=== PATIENT | male | born 1980 | race Caucasian/White ===

== ENCOUNTER 2016-12-07 09:01 | Emergency (ER) | payer SELFPAY ==
[~2016-12-07] VITALS: Ht 175.3 cm; Wt 87.0 kg
[2016-12-07 09:01] VITALS: TEMP 98.2; Ht 175.3 cm; Wt 87.0 kg
[~2016-12-07 09:01] MED LIST: ONDA4TAB7 PO
--- OUTSIDE RECORDS SUMMARY | 2016-12-07 09:05 | XMS REPORT | Continuity of Care Document ---
Author Author [facility] Organization [facility] Address Unknown Phone Unavailable Support Name Relationship Address Phone TYRONE MCQUEEN MD Caregiver [address] [place] [address] [place] [address] Unavailable RORO LOZADA Next Of Kin [address] [place] [address] Insurance Providers Guarantor Roshni Cash Address [address] [place] [address] Email [email or web address] Payer Self Pay Subscriber's Name Roshni Cash Relationship 18 Self Chief Complaint and Reason for Visit Chief Complaint Head Injury Reason for Visit Concussion [id number] Problems Active Problems Medical Problem Onset Date Status Ankle injury Unknown Acute Arm Pain Unknown Acute Foot sprain Unknown Acute Patient left without being seen Unknown Acute Right ankle sprain Unknown Acute Sprain, ankle joint, medial Unknown Acute Toothache Unknown Acute Toothache Unknown Acute Past Problems Medical Problem Onset Date Acute bronchitis Unknown Concussion Unknown Cough with hemoptysis Unknown Dental decay Unknown Diarrhea Unknown Gingivitis Unknown Laceration of right thumb without complication Unknown Pain, dental Unknown Viral upper respiratory infection Unknown Medications Current Home Medications Medication Dose Units Route Directions Days Qty Instructions Start Date Ondansetron (Zofran Odt) 4 Mg Tab.rapdis 4 Mg Oral Q6h/0300,0900,1500,2100 as needed for Nausea &/Or Vomiting 10 Tablet Oral disintegrating tablet Past Home Medications Medication Directions Ordered Status Acetaminophen 500 Mg Tablet, 1000 Mg Oral Every 8 Hours as needed for Pain Discontinued Atomoxetine Hcl (Strattera) 18 Mg Capsule, 1 Cap Oral Every Morning 11/17/16 Discontinued Bupropion Hcl 100 Mg Tablet, 100 Mg Oral Twice A Day 11/17/16 Discontinued Dextroamphetamine/Amphetamine (Adderall 15 Mg Tablet) 15 Mg Tablet, 15 Mg Oral Twice A Day 11/17/16 Discontinued Ibuprofen 200 Mg Tablet, 2 Tab Oral Every 4 Hours as needed for Pain Discontinued Lisinopril 20 Mg Tablet, 20 Mg Oral Daily for Hypertension 11/17/16 Discontinued Social History Social History Problem Response Recorded Date/Time Onset Date Status Hx Substance Use No 11/17/2016 1:16pm Not Applicable Not Applicable Hx Alcohol Use Y OCC 11/17/2016 1:16pm Not Applicable Not Applicable Tobacco Usage smoke 04/26/2015 3:42am Not Applicable Not Applicable Query Response Start Date Stop Date Smoking Status Current some day smoker Hospital Discharge Instructions No hospital discharge instructions. Plan of Care Discharge Date 11/17/16 1:16pm Disposition 01 DISCHARGED HOME, SELF-CARE Condition at Discharge Stable Instructions/Education Provided Concussion (ED) Forms Provided Return to Work/School Permit Prescriptions See Medication Section Additional Instructions/Education Follow-up with your primary care physician for reevaluation Care Plan and Goals Physician Care Plan Problem: Concussion, upper respiratory infection Goal: Follow up with primary care provider Instructions: Take medications and follow care plan as discussed/written Functional Status No functional status results. Allergies, Adverse Reactions, Alerts No known allergies. Immunizations Query Response on File Recorded Date/Time Hx Influenza Vaccination No 04/26/15 3:25am Hx Tetanus, Diptheria, Pertussis Y 201004/26/15 3:25am Hx Influenza Vaccination No 04/26/15 3:25am Hx Tetanus, Diptheria, Pertussis Y 201004/26/15 3:25am DTaP Vaccine History 201311/17/16 1:16pm Influenza Vaccine Hx NONE 11/17/16 1:16pm Tdap Vaccine Hx UTD PER PATIENT 07/21/16 1:21pm Vital Signs Acute Vital Signs Vital Response Date/Time Temperature (Fahrenheit) 97.8 deg F (96.8 - 99.1) 11/17/2016 11:16am Temperature (Calculated Celsius) 36.17034 degrees C (36.0 - 37.3) 11/17/2016 11:16am Pulse Rate (adult) 102 bpm (60 - 100) 11/17/2016 11:16am Respiratory Rate 20 breaths/min (10 - 20) 11/17/2016 11:16am O2 Sat by Pulse Oximetry 99 % (90 - 100) 11/17/2016 11:16am Blood Pressure 137/90 mm Hg 11/17/2016 11:16am Height (Feet) 5 feet 11/17/2016 11:16am Height (Inches) 9.00 inches 11/17/2016 11:16am Weight (Kilograms) 90.500 kg 11/17/2016 11:16am Body Mass Index (BMI) 29.0 11/17/2016 11:16am Results Name: ROSHNI CASH Unit #: [id number] : 1980 Sex: M Admit Date: Loc / Svc: ED Discharge Date: DIAGNOSTIC IMAGING [facility]PORT [facility] [id number] ITS.REASON: cough shortness of air PROCEDURE: CHEST 2-VIEWS UPRIGHT (PA \T\ LAT) Encounter: Initial COMPARISON: April 27, 2016 FINDINGS: The lungs are clear without evidence of focal abnormal airspace opacity. There is no pleural effusion or pneumothorax. The heart size, mediastinal contours and pulmonary vascularity are within normal limits. There is no significant skeletal abnormality. IMPRESSION: No acute cardiopulmonary disease. . Procedures No known history of procedures. Encounters Encounter Location Arrival/Admit Date Discharge/Depart Date Attending Provider Departed Emergency Room [facility] 11/17/16 11:13am 11/17/16 1: 16pm TYRONE MCQUEEN MD Departed Emergency Room [facility] 09/07/16 7:13pm 09/07/16 8: 30pm JASWINDER PEREIRA MD Recent Diagnosis
--- OUTSIDE RECORDS SUMMARY | 2016-12-07 09:05 | XMS REPORT | Continuity of Care Document ---
Author Author [facility] Organization [facility] Address Unknown Phone Unavailable Support Name Relationship Address Phone JASWINDER PEREIRA MD Caregiver [facility] [address] [place] [phone] Unavailable RORO LOZADA Next Of Kin [address] [place] [phone] Insurance Providers Payer Name Policy Number Subscriber Name Relationship Self Pay ErmabrylindaRoshni galindo 19 Self Problems Medical Problems Problem Onset Date Status Arm Pain Unknown Active Sprain, ankle joint, medial Unknown Active Foot sprain Unknown Active Medications Medication Dose Route Sig Days/Qty Instructions Order Date Discontinued Date Status Hydrocodone/Acetaminophen 1-2 Tab PO FOUR TIMES DAILY PRN PAIN 30 Qty 06/23/14 Active Social History Social History Problem Response Recorded Date/Time Smoking Status Never smoker 06/23/2014 8:20pm Hx Alcohol Use No 06/23/2014 8:20pm Query Response Start Date Stop Date Smoking Status Current every day smoker Hospital Discharge Instructions No hospital discharge instructions. Plan of Care No plan of care. Functional Status Query Response Date Recorded Physical Hygiene Self June 23, 2014 8:20pm Disabilities None June 23, 2014 8:20pm Devices Used None June 23, 2014 8:20pm Dressing Self June 23, 2014 8:20pm Ambulation Self June 23, 2014 8:20pm Diet Self June 23, 2014 8:20pm Mental Status Alert June 23, 2014 8:47pm Disabilities None June 23, 2014 8:20pm Devices Used None June 23, 2014 8:20pm Physical Hygiene Self June 23, 2014 8:20pm Dressing Self June 23, 2014 8:20pm Ambulation Self June 23, 2014 8:20pm Diet Self June 23, 2014 8:20pm Allergies, Adverse Reactions, Alerts Allergen Type Severity Reaction Status Last Updated No Known Allergies Active 06/23/14 Immunizations Name Given Type Hx Influenza Vaccination No Historical Hx Tetanus, Diptheria, Pertussis Y 2010 Historical Hx Influenza Vaccination No Historical Hx Tetanus, Diptheria, Pertussis Y 2010 Historical Vital Signs Acute Vital Signs Vital Response Date/Time Temperature (Fahrenheit) 98.2 deg F (96.8 - 99.1) Temperature (Calculated Celsius) 36.01910 degrees C (36.0 - 37.3) Pulse Rate (adult) 80 bpm (60 - 100) Respiratory Rate 24 breaths/min (10 - 20) O2 Sat by Pulse Oximetry 96 % (90 - 100) Blood Pressure 130/86 mm Hg Height 5 ft 9 in Weight 205 lb Body Mass Index 30.0 kg/m^2 Results Test Source Date Result Interp. Ref. Range Comments Gram Stain Abscess November 30, 2012 7:25am Procedures No known history of procedures. Encounters Encounter Location Date/Time Departed Emergency Room [facility] 06/23/14 7:39pm Recent Diagnosis
[2016-12-07] MEDS ORDERED: BUPR100T6 PO (09:18)
[2016-12-07] MEDS ORDERED: LISI-621 PO (09:18)
[2016-12-07] MEDS ORDERED: AMPH15TA2 PO (09:18)
[2016-12-07] MEDS ORDERED: ATOM25CA PO (09:18)
[2016-12-07] MEDS ORDERED: [UNRECOGNIZED DRUG - CODE] PO (09:19)
[2016-12-07] MEDS ORDERED: ACET-62 PO (09:19)
--- NOTE | 2016-12-07 09:48 | NUR ---
PROVIDER. DR. Ashley MURRAY IN ROOM WITH PT.
--- OUTSIDE RECORDS SUMMARY | 2016-12-07 10:02 | XMS REPORT | Continuity of Care Document ---
Author Author [facility] Organization [facility] Address Unknown Phone Unavailable Support Name Relationship Address Phone JASWINDER PEREIRA MD Caregiver [facility] [address] [place] [phone] Unavailable RORO LOZADA Next Of Kin [address] [place] [phone] Insurance Providers Payer Name Policy Number Subscriber [...] F (96.8 - 99.1) Temperature (Calculated Celsius) 36.37240 degrees C (36.0 - 37.3) Pulse Rate [...] Encounters Encounter Location Date/Time Departed Emergency Room [facility] 06/23/14 7:39pm Recent Diagnosis
--- NOTE | 2016-12-07 10:11 | ERPDOC ---
Departure Disposition Decision Date: Dec 07, 2016 Disposition Decision Time: 10:00 Disposition: 01 DISCHARGED HOME, SELF-CARE Impression Impression Impression: Primary Impression: Bronchitis Additional Impression: Tobacco dependence Severity: Moderate Condition: Stable Seen By: Physician only Patient Instructions: Cigarette Smoking and Your Health (GEN), Upper Respiratory Infection (ED) Problems/Meds/Labs Reviewed?: Yes Medications reviewed and manag: Yes Additional Instructions: Home to rest. Start antibiotic as directed. Use over the counter Delsym or other cough syrup as needed. Get plenty of fluids. Try to stop smoking to decrease irritation to the bronchial tubes. Follow up with your doctor if not improving. Vitamin C or [place] leaf extract can help support your immune system as well. Follow up care ordered?: Yes Mental Status: Alert, Oriented Scripts Amoxicillin (Amoxicillin) 875 Mg Tablet 1 TAB PO Q12H for 10 Days, #20 TAB 0 Refills Prov: NEVAEH MURRAY MD 12/07/16 HPI - Cough/URI General Chief Complaint: Cough,Fever,Flu,URI Stated Complaint: DIFF BREATHING Time Seen by Provider: 09:55 Source: patient, RN notes reviewed, old records Exam Limitations: no limitations HPI - Cough/URI Initial Comments This patient comes in after having had cold symptoms for about a month that do not seem to be going away. He is coughing with production of greenish sputum. He continues to smoke, but has decreased some. Positive for shortness of breath , but no fever. He has tried Mucinex without relief. He lost his voice last week from all the coughing. No known exposure to influenza or strep. Occurred At: home Onset/Timing: Gradual Pain/Severity Scale: Now: 5/10 Prior Episodes/Possible Cause: occasional episodes Modifying Factors: IMPROVES WITH: rest, WORSE WITH: activity Associated Symptoms: cough, lightheadedness, nasal congestion, shortness of breath Hx of Similar Symptoms: Yes Allergies: Coded Allergies: No Known Allergies (Unverified , 12/07/16) Past History Past Medical History ENMT: dental problems Hx Echocardiogram: No Respiratory: COPD, pneumonia GI: GERD Psychological: ADHD Surgical History Denies Surgeries Joint: other (hx fractured ankle) Vaccines Hx Influenza Vaccination: No Hx Tetanus, Diptheria, Pertuss: Yes (2010) Social History Smoking Status: Current every day smoker Does patient use chewing tobac: No Second Hand Exposure: No Substance Use Type: does not use Alcohol Intake: occasionally Sexuality: female partner Record Review Pertinent history updated: Yes Review of Systems Constitutional Constitutional: appetite decrease, fatigue, DENIES: chills, dizziness, fever, weakness Eyes General: DENIES: pain Lids/Accessories: DENIES: erythema Vision: DENIES: blurring ENMT Ears: DENIES: pain Hearing: DENIES: hearing loss Balance: DENIES: vertigo Sinuses: DENIES: congestion, rhinorrhea Mouth/Throat: DENIES: sore throat Teeth: DENIES: pain Cardiovascular Cardiac: DENIES: chest pain Rhythm/Rate: DENIES: palpitations Vascular: DENIES: pedal edema, unilateral swelling Pulmonary Respiratory: cough, dyspnea, see HPI, sputum GI Upper Abdomen: heartburn/indigestion General: DENIES: dysuria, hematuria Male: DENIES: hesitancy Musculoskeletal General: DENIES: joint pain, pain Integumentary Skin: DENIES: itching, rash Neurological General: DENIES: headache, memory disturbances, seizures, syncope Psychiatric Psychiatric: DENIES: anxiety, depression Endocrine Endocrine: DENIES: heat/cold intolerance Hematologic/Lymphatic Hematologic/Lymphatic: DENIES: anemia, easy bruising Allergic/Immunological Allergic/Immunoligical: DENIES: hives All other Systems All Other Systems: Reviewed and Negative Physical Exam General General Nourishment: well nourished, well developed, appears stated age, no acute distress, adult General Body Habitus: well groomed Vitals and Pain First Documented Vital Signs Date Time Temp Pulse Resp B/P Pulse Ox O2 Delivery O2 Flow Rate FiO2 12/07/16 09:01 98.2 98 16 155/83 99 Room Air Weight: Kilograms: 87.000 Height (feet): 5 Height (inches): 9.00 Triage Pain Scale: RN VS reviewed by Provider: Yes Normal Exams: Head: Normocephalic w/o trauma Eyes: Pupils are PERRLA w/ EOMI, No scleral icterus, irritation, or foreign bodies noted ENMT: No facial trauma, nasal exudates, pharyngeal erythema, or exudates are noted Neck: Full range of motion, without adenopathy, JVD, bruits or thyromegaly CV: Regular rate and rhythm, without murmur or gallop, Pulses 2+ all extremities, capillary refill, <2 seconds all ext., no pedal edema noted Abdomen: Bowel sounds positive, soft, non-tender, non-distended, no hepatosplenomegaly, masses or bruits noted Musculoskeletal: No tenderness, or deformity noted, good range of motion, all extremities Integumentary: No rashes, hives, or bruising noted, hair and nails, without abnormality Neurologic: Patient is alert, and oriented, cranial nerves, motor/sensory/ cerebellar, exams w/o gross deficits, to observation Psychiatric: Patient exhibits, appropriate attention, emotion and affect Respiratory (brief) Respiratory: FOUND: equal bilaterally, symmetrical, wheezes, NOT FOUND: tenderness Comments mild decrease in air flow, rare expiratory wheeze Differential Diagnoses Differential Diagnoses Considering: Acute Bronchitis, Asthma Exacerbation, Influenza, Pneumonia, Viral Syndrome Progress Progress Progress Patient improved with a neb treatment. Will send home on antibiotics. Encouraged to stop smoking. NEVAEH MURRAY MD Dec 07, 2016 10:11
[2016-12-07] MEDS ORDERED: AMOX875T2 PO (10:12)
[2016-12-07 10:50] VITALS: BP 158/83; PULSE 114; RESP 16; O2SAT 97
== END 2016-12-07 10:53 | disposition home or self-care (01) ==
LOC: ED 09:01
DX: J44.9 Chronic obstructive pulmonary disease, unspecified (principal); F17.200 Nicotine dependence, unspecified, uncomplicated

== ENCOUNTER 2017-01-05 11:13 | Emergency (ER) | payer SELFPAY ==
[~2017-01-05] VITALS: Ht 177.8 cm; Wt 88.5 kg
[~2017-01-05 11:13] MED LIST changes: +ACET-62 PO; +AMOX875T2 PO; +AMPH15TA2 PO; +ATOM25CA PO; +BUPR100T6 PO; +LISI-621 PO; -ONDA4TAB7 PO; +[UNRECOGNIZED DRUG - CODE] PO
[2017-01-05 11:16] VITALS: Ht 177.8 cm; Wt 88.5 kg
--- OUTSIDE RECORDS SUMMARY | 2017-01-05 11:17 | XMS REPORT | Continuity of Care Document ---
Author Author [facility] Organization [facility] Address Unknown Phone Unavailable Support Name Relationship Address Phone JASWINDER PEREIRA MD Caregiver [facility] [address] [place] [phone] Unavailable RORO LOZADA Next Of Kin [address] [place] [phone] Insurance Providers Payer Name Policy Number Subscriber [...] F (96.8 - 99.1) Temperature (Calculated Celsius) 36.28143 degrees C (36.0 - 37.3) Pulse Rate [...] Encounters Encounter Location Date/Time Departed Emergency Room [facility] 06/23/14 7:39pm Recent Diagnosis
--- OUTSIDE RECORDS SUMMARY | 2017-01-05 11:17 | XMS REPORT | Continuity of Care Document ---
Author Author [facility] Organization [facility] Address Unknown Phone Unavailable Support Name Relationship Address Phone NEVAEH MURRAY MD Caregiver [address] [place] [address] [place] [address] Unavailable RORO LOZADA Next Of Kin [address] [place] [phone] Insurance Providers Guarantor Roshni Cash Address [address] [place] [address] Email [email or web address] Payer Self Pay Subscriber's Name Roshni Cash Relationship 18 Self Advance Directives Directive Response Recorded Date/Time Advanced Directives Type None 12/07/16 9:01am Chief Complaint and Reason for Visit Chief Complaint Cough,Fever,Flu,URI Reason for Visit [id number] Bronchitis Problems Active Problems Medical Problem Onset Date Status Ankle injury Unknown Acute Arm Pain Unknown Acute Bronchitis Unknown Acute Foot sprain Unknown Acute Patient left without being seen Unknown Acute Right ankle sprain Unknown Acute Sprain, ankle joint, medial Unknown Acute Tobacco dependence Unknown Acute Toothache Unknown Acute Toothache Unknown Acute Past Problems Medical Problem Onset Date Acute bronchitis Unknown Concussion Unknown Cough with hemoptysis Unknown Dental decay Unknown Diarrhea Unknown Gingivitis Unknown Laceration of right thumb without complication Unknown Pain, dental Unknown Viral upper respiratory infection Unknown Medications Current Home Medications Medication Dose Units Route Directions Days Qty Instructions Start Date Acetaminophen 500 Mg Tablet 1,000 Mg Oral Every 8 Hours as needed for Pain 12/07/16 Amoxicillin 875 Mg Tablet 1 Tab Oral Every 12 Hours 10 Days 20 Tablet 12/07/16 Atomoxetine Hcl (Strattera) 25 Mg Capsule 50 Mg Oral Every Morning 12/07/16 Bupropion Hcl (Bupropion Hcl Sr) 100 Mg Tablet.er 100 Mg Oral Twice A Day 12/07/16 Dextroamphetamine/Amphetamine (Adderall 15 Mg Tablet) 15 Mg Tablet 15 Mg Oral Twice A Day 12/07/16 Lisinopril 20 Mg Tablet 20 Mg Oral Daily 12/07/16 Phenol (Throat Blodgett) 177 Ml Blodgett 2 Blodgett Oral As Needed Past Home Medications Medication Directions Ordered Status [...] Onset Date Status Hx Substance Use No 12/07/2016 9:15am Not Applicable Not Applicable Hx Alcohol Use Y OCC 12/07/2016 9:15am Not Applicable Not Applicable Tobacco Usage smoke 04/26/2015 3:42am Not Applicable Not Applicable Query Response Start Date Stop Date Smoking Status Current every day smoker Hospital Discharge Instructions No hospital discharge instructions. Plan of Care Discharge Date 12/07/16 10:53am Disposition 01 DISCHARGED HOME, SELF-CARE Condition at Discharge Stable Instructions/Education Provided Cigarette Smoking and Your Health (GEN) Upper Respiratory Infection (ED) Prescriptions See Medication Section Additional Instructions/Education Home to rest. Start antibiotic as directed. Use over the counter Delsym or other cough syrup as needed. Get plenty of fluids. Try to stop smoking to decrease irritation to the bronchial tubes. Follow up with your doctor if not improving. Vitamin C or [place] leaf extract can help support your immune system as well. Care Plan and Goals Physician Care Plan Problem: bronchitis, tobacco dependence Goal: Follow up with primary care provider [...] Pertussis Y 201004/26/15 3:25am DTaP Vaccine History 201312/07/16 9:15am Influenza Vaccine Hx NONE 12/07/16 9:15am Tdap Vaccine Hx NO BROKEN SKIN 11/17/16 1:16pm Vital Signs Acute Vital Signs Vital Response Date/Time Temperature (Fahrenheit) 98.2 deg F (96.8 - 99.1) 12/07/2016 9:01am Temperature (Calculated Celsius) 36.84707 degrees C (36.0 - 37.3) 12/07/2016 9:01am Pulse Rate (adult) 114 bpm (60 - 100) 12/07/2016 10:50am Respiratory Rate 16 breaths/min (10 - 20) 12/07/2016 10:50am O2 Sat by Pulse Oximetry 97 % (90 - 100) 12/07/2016 10:50am Blood Pressure 158/83 mm Hg 12/07/2016 10:50am Height (Feet) 5 feet 12/07/2016 9:01am Height (Inches) 9.00 inches 12/07/2016 9:01am Weight (Kilograms) 87.000 kg 12/07/2016 9:01am Body Mass Index (BMI) 28.0 12/07/2016 9:01am Results No known relevant diagnostic tests, laboratory data and/or discharge summary. Procedures No known history of procedures. Encounters Encounter Location Arrival/Admit Date Discharge/Depart Date Attending Provider Departed Emergency Room [facility] 12/07/16 9:01am 12/07/16 10: 53am NEVAEH MURRAY MD Departed Emergency Room [facility] 11/17/16 11:13am 11/17/16 1: 16pm TYRONE MCQUEEN MD Recent Diagnosis
--- NOTE | 2017-01-05 11:24 | NUR ---
PROVIDER DR. BARROS AT BEDSIDE FOR EXAM.
[2017-01-05] MEDS ORDERED: DIPH28.33 TOP (11:31)
--- NOTE | 2017-01-05 11:32 | ERPDOC ---
Departure Disposition Decision Date: Jan 05, 2017 Disposition Decision Time: 11:29 Disposition: 01 DISCHARGED HOME, SELF-CARE Impression Impression Impression: Primary Impression: Rash Additional Impression: Scabies Severity: Mild Condition: Improved Seen By: Physician only Referrals: [facility] Patient Instructions: Acute Rash (ED), Scabies (ED) Problems/Meds/Labs Reviewed?: Yes Medications reviewed and manag: Yes Follow up care ordered?: Yes Mental Status: Alert, Oriented Scripts Hydroxyzine Pamoate (Vistaril) 25 Mg Capsule 1 CAP PO QID for ITCHING, #20 CAP 0 Refills Prov: KUNAL BARROS DO 01/05/17 Permethrin (Permethrin) 60 Gm Cream..g. 1 APPLIC TOP ONE TIME for RASH, #1 0 Refills May repeat in 14 days Prov: KUNAL BARROS DO 01/05/17 HPI - Skin General General Chief Complaint: Skin Rash/Abscess Stated Complaint: POSSIBLE ALLERGIC REACTION/RASH Time Seen by Provider: 11:28 Source: patient (Patient presents to the ER with a 2-3 day complaint of rash to extremities and torso. Distribution consistant with scabies. ) Exam Limitations: no limitations HPI - Skin General Occurred At: home Onset: Changing over time Duration: 1 week Pain Scale: Now & Worst: 0/10 Possible Cause: no cause identified Modifying Factors: WORSE WITH: scratching Associated Symptoms: denies symptoms Hx of Similar Symptoms: No Allergies: Coded Allergies: No Known Allergies (Unverified , 01/05/17) Past History Past Medical History ENMT: dental problems Hx Echocardiogram: No Respiratory: COPD, pneumonia GI: GERD Psychological: ADHD Surgical History Denies Surgeries Joint: other Family History Family PMH: FOUND: other Vaccines Hx Influenza Vaccination: No Hx Tetanus, Diptheria, Pertuss: Yes (2010) Social History Smoking Status: Unknown if ever smoked Does patient use chewing tobac: No Second Hand Exposure: No Substance Use Type: does not use Alcohol Intake: occasionally Last Drink: unknown Marital Status: Single Sexuality: female partner Housing: house Household Members: significant other Service: No Current Occupational Status: employed Occupational Hazard: No Advance Directives: Yes Full Code Record Review Pertinent history updated: Yes Review of Systems Constitutional Constitutional: DENIES: chills, fever Eyes Lids/Accessories: DENIES: erythema, swelling ENMT Ears: DENIES: erythema, pain Balance: DENIES: ataxia, vertigo Sinuses: DENIES: congestion, rhinorrhea Mouth/Throat: DENIES: sore throat Cardiovascular Cardiac: DENIES: chest pain, dyspnea on exertion, orthopnea Rhythm/Rate: DENIES: tachycardia Pulmonary Respiratory: DENIES: cough, sputum GI Upper Abdomen: DENIES: nausea, pain, vomiting Lower Abdomen: DENIES: constipation, diarrhea, pain General: DENIES: dysuria Musculoskeletal General: DENIES: cramps, joint pain, joint swelling, pain, tenderness, weakness Integumentary Skin: itching, rash (Patient presents to the ER with a 2-3 day complaint of rash to extremities and torso. Distribution consistant with scabies. ), DENIES : color change Neurological General: DENIES: ataxia, change in strength, headache, numbness, poor coordination, seizures, syncope, vertigo, weakness Psychiatric Psychiatric: DENIES: anxiety, depression, nervousness Hematologic/Lymphatic Hematologic/Lymphatic: DENIES: anemia Allergic/Immunological Allergic/Immunoligical: DENIES: sneezing All other Systems All Other Systems: Reviewed and Negative Physical Exam General General Nourishment: well nourished, well developed, appears stated age, no acute distress, adult General Body Habitus: well groomed Vitals and Pain First Documented Vital Signs Date Time Temp Pulse Resp B/P Pulse Ox O2 Delivery O2 Flow Rate FiO2 01/05/17 11:16 97.8 114 18 170/86 98 Room Air Weight: Kilograms: Height (feet): 5 Height (inches): 9.00 Triage Pain Scale: RN VS reviewed by Provider: Yes Eyes (brief) Eyes Brief: found: EOMI, PERRL ENMT (brief) ENMT Brief: FOUND: TM clear, TM good light reflex, mucosa moist, NOT FOUND: pharnyx erythema Neck (brief) Neck: FOUND: trachea midline, NOT FOUND: adenopathy, nuchal rigidity, tenderness, tracheal deviation Respiratory (brief) Respiratory: FOUND: clear all morin, equal bilaterally Cardiovascular (brief) Cardiac: FOUND: regular rate, regular rhythm Capillary Refill: <2 sec Pulses: all distal extremities, equal, strong Abdomen (brief) Abdominal Brief: FOUND: bowel normo active x4, soft, NOT FOUND: distended, tender Lymphatic (brief) Lymphatic Brief: NOT FOUND: adenopathy Musculoskeletal (brief) Musculoskeletal Brief: NOT FOUND: spasm, tenderness Integumentary (brief) Integumentary Brief: FOUND: other (Patient presents to the ER with a 2-3 day complaint of rash to extremities and torso. Distribution consistant with scabies. ), pink, warm Neurologic (brief) Neurological Brief: FOUND: CN w/o gross def to obs, gait w/o gross def to obs, motor-no gross deficits, sensory-no gross deficits, NOT FOUND: ataxia Psychiatric (brief) Psychiatric Brief: FOUND: alert, attentive, normal affect, oriented Differential Diagnoses Considering: Abrasion, Abscess, Alopecia, Chickenpox, Contact Dermatitis, Eczema, Erythema Multiforme, Folliculitis, Henoch Schoenlein Purpura, Measles, Melanoma, Psoriasis, Rosacea, Tinea Versicolor, Lyme's Disease, [place] Spotted Fe, Scabies, Insect Sting, Viral Exanthem, Other Progress Progress Progress Patient presents to the ER with a 2-3 day complaint of rash to extremities and torso. Distribution constant with scabies. KUNAL BARROS DO Jan 05, 2017 11:32
[2017-01-05] MEDS ORDERED: HYDR25CA PO (11:38)
[2017-01-05] MEDS ORDERED: PERM60CR4 TOP (11:38)
--- OUTSIDE RECORDS SUMMARY | 2017-01-05 11:46 | XMS REPORT | Continuity of Care Document ---
Author Author [facility] Organization [facility] Address Unknown Phone Unavailable Support Name Relationship Address Phone JASWINDER PEREIRA MD Caregiver [facility] [address] [place] [phone] Unavailable RORO LOZADA Next Of Kin [address] [place] [phone] Insurance Providers Payer Name Policy Number Subscriber [...] F (96.8 - 99.1) Temperature (Calculated Celsius) [phone] degrees C (36.0 - 37.3) Pulse Rate [...] Encounters Encounter Location Date/Time Departed Emergency Room [facility] 06/23/14 7:39pm Recent Diagnosis
[2017-01-05 11:50] VITALS: BP 159/85; PULSE 103; RESP 18; TEMP 97.8; O2SAT 98
--- NOTE | 2017-01-05 11:50 | NUR ---
DISCHARGE WRITTEN INSTRUCTIONS WITH PERMETHRIN AND VISTARIL RX REVIEWED AND SENT WITH PT. PT VERBALIZES UNDERSTANDING OF DI AND MEDICATIONS, DENIES QUESTIONS. PT AMBULATES OUT OF ER WITH STEADY GAIT AT THIS TIME.
== END 2017-01-05 11:50 | disposition home or self-care (01) ==
LOC: ED 11:13
DX: R21 Rash and other nonspecific skin eruption (principal); B86 Scabies